=== PATIENT | male | born 1945 | race Caucasian/White ===

== ENCOUNTER → 2021-02-09 | Outpatient (CLI) | payer MEDICARE | END | disposition home or self-care (01) | LOC: CFH 14:42 | PROVIDERS: ATTEND Internal Medicine Cardiovascular Disease | DX: I08.0 Rheumatic disorders of both mitral and aortic valves (principal); I48.91 Unspecified atrial fibrillation | CPT/HCPCS: 93306; 93356 ==

== ENCOUNTER → 2021-04-10 | Outpatient (CLI) | payer MEDICARE ==
[~2021-04-10] MED LIST: OMNIPAQUE 350 MG/ML, 150 ML BOTTLE ONE
== END | disposition home or self-care (01) ==
LOC: CFH 09:44
PROVIDERS: ATTEND Internal Medicine Cardiovascular Disease
DX: I48.91 Unspecified atrial fibrillation (principal)
CPT/HCPCS: 71046; 75572; Q9967

== ENCOUNTER 2021-04-13 06:03 | Observation (INO) | payer MEDICARE ==
[~2021-04-13] VITALS: Ht 177.8 cm; Wt 84.2 kg
[2021-04-13] MEDS ORDERED: VITA1TAB19 PO (06:55)
[2021-04-13] MEDS ORDERED: ERGO1250 PO (06:55)
[2021-04-13] MEDS ORDERED: MULT1TAB58 PO (06:55)
[2021-04-13] MEDS ORDERED: DIGO250T3 PO (06:55)
[2021-04-13] MEDS ORDERED: IRON1TAB60 PO (06:55)
[2021-04-13] MEDS ORDERED: METF500T17 PO (06:55)
[2021-04-13] MEDS ORDERED: CLIN300C9 PO (06:55)
[2021-04-13] MEDS ORDERED: APIX5TAB PO (06:55)
[2021-04-13] MEDS ORDERED: SIMV20TA19 PO (06:55)
[2021-04-13] MEDS ORDERED: CARV12.52 PO (06:55)
[2021-04-13] MEDS ORDERED: OMEP-110 PO (06:55)
[2021-04-13] MEDS ORDERED: SODIUM CHLORIDE 0.9% 1,000 ML IV ONE (07:00)
[2021-04-13] MEDS ORDERED: SODIUM CHLORIDE 0.9% 1,000 ML IV SCH (07:00)
[2021-04-13 07:32] LABS: MEAN CORPUSCULAR HEMOGLOBIN 31.3 pg (27.5-34.5); MEAN CORPUSCULAR HGB CONC 33.7 g/dL (33.2-36.2); MEAN PLATELET VOLUME 8.5 fL (7.4-10.4); PLATELET COUNT 202 x10^3/uL (130-400); RED BLOOD COUNT 4.41 x10^6/uL (4.38-5.82)
[2021-04-13 07:44] LABS: ANION GAP 7 mmol/L (5-15); CHLORIDE 107 mmol/L (98-107); CREATININE 1.23 mg/dL (0.7-1.3)
[2021-04-13] MEDS ORDERED: FENTANYL PF 250 MCG/5ML ONE (07:46)
[2021-04-13] MEDS ORDERED: MIDAZOLAM 1 MG/ML, 2ML ONE (07:46)
[2021-04-13] MEDS ORDERED: ROCURONIUM 10MG/ML,5ML ONE (07:47)
[2021-04-13 07:53] LABS: INTERNATIONAL NORMALIZED RATIO 1.07 (0.93-1.1); PROTHROMBIN TIME 11.4 Seconds (9.6-11.5)
[2021-04-13 08:07] LABS: BASOS#(MANUAL) 0.08 x10^3/uL (0-0.1); BASOS% (MANUAL) 1 % (0-1); EOS#(MANUAL) 0.31 x10^3/uL (0.0-0.4); EOS% (MANUAL) 4 % (1-7); LYMPH#(MANUAL) 1.56 x10^3/uL (1-3.4); LYMPHS% (MANUAL) 20 % (22-44); MONOS#(MANUAL) 0.86 x10^3/uL (0.3-2.7); MONOS% (MANUAL) 11 % (2-9); SEG#(MANUAL) 4.99 x10^3/uL (1.8-6.8); SEGS% (MANUAL) 64 % (42-75)
[2021-04-13 08:08] LABS: <PLATELET ESTIMATE> ADEQUATE; <PLT MORPHOLOGY> NORMAL PLT MORPH; <RBC MORPHOLOGY> NORMAL
[2021-04-13] MEDS ORDERED: PROPOFOL 10 MG/ML, 20ML ONE (08:12)
[2021-04-13] MEDS ORDERED: CEFAZOLIN 1,000 MG ONE (08:12)
[2021-04-13] MEDS ORDERED: DEXAMETHASONE 4 MG/ML, 1ML ONE ×2 (08:34)
[2021-04-13] MEDS ORDERED: HEPARIN 1,000 UNITS/ML, 10ML ONE ×2 (09:00→10:29)
[2021-04-13] MEDS ORDERED: NEOSTIGMINE 1 MG/ML, 10ML ONE (10:29)
[2021-04-13] MEDS ORDERED: ONDANSETRON 2MG/ML, 2ML ONE ×2 (10:29)
[2021-04-13] MEDS ORDERED: GLYCOPYRROLATE 0.2MG/1ML, 5ML ONE (10:29)
[2021-04-13] MEDS ORDERED: APIXABAN 5 MG TABLET PO SCH (10:30)
[2021-04-13] MEDS ORDERED: ZOLPIDEM 5MG TABLET PO PRN (10:30)
[2021-04-13] MEDS ORDERED: CLINDAMYCIN 300 MG CAPSULE PO SCH (10:30)
[2021-04-13] MEDS ORDERED: ACETAMINOPHEN 325 MG TABLET PO PRN ×2 (10:30→11:00)
[2021-04-13] MEDS ORDERED: ONDANSETRON 2MG/ML, 2ML IVPush PRN ×2 (10:30→11:00)
[2021-04-13] MEDS ORDERED: MEPERIDINE/PF 25MG/0.5ML IVPush PRN (11:00)
[2021-04-13] MEDS ORDERED: MIDAZOLAM 1 MG/ML, 2ML IV PRN (11:00)
[2021-04-13] MEDS ORDERED: DIPHENHYDRAMINE 50 MG/ML, 1ML IVPush PRN ×2 (11:00)
[2021-04-13] MEDS ORDERED: LABETALOL 5MG/ML, 20ML IV PRN (11:00)
[2021-04-13] MEDS ORDERED: hydrALAzine 20 MG/ML, 1ML IV PRN (11:00)
[2021-04-13] MEDS ORDERED: DIAZEPAM 5 MG/ML, 2ML IVPush PRN (11:00)
[2021-04-13] MEDS ORDERED: PROMETHAZINE 25 MG/ML, 1ML IVPush PRN (11:00)
[2021-04-13] MEDS ORDERED: FENTANYL PF 100 MCG/2ML IV PRN (11:00)
[2021-04-13] MEDS ORDERED: ALBUTEROL SULFATE 2.5 MG/3 ML NPPB PRN (11:00)
[2021-04-13] MEDS ORDERED: EPHEDRINE 50 MG/ML, 1ML IVPush PRN (11:00)
[2021-04-13] MEDS ORDERED: OXYcodone 5 MG/5 ML ORAL.SOL UDC PO PRN (11:00)
[2021-04-13] MEDS ORDERED: PROMETHAZINE 12.5 MG SUPP PR PRN (11:00)
[2021-04-13] MEDS ORDERED: HYDROmorphone 1 MG/ML, 1ML INJ IVPush PRN (11:00)
[2021-04-13] MEDS ORDERED: APIXABAN 5 MG TABLET ONE (11:50)
[2021-04-13] MEDS ORDERED: APIXABAN 5 MG TABLET PO ONE (12:00)
[2021-04-13 14:00] VITALS: BP 138/79
[2021-04-13 19:55] VITALS: BP 122/75
[2021-04-13] MEDS: metFORMIN 500 MG TABLET PO SCH (20:34)
[2021-04-13] MEDS: APIXABAN 5 MG TABLET PO SCH (20:34)
[2021-04-13] MEDS: CARVEDILOL 12.5 MG TABLET PO SCH (20:34)
[2021-04-13] MEDS: COLCHICINE 0.6 MG CAPSULE PO SCH (20:34)
[2021-04-13] MEDS ORDERED: SIMVASTATIN 20 MG TABLET PO SCH (21:00)
[2021-04-14 03:03] VITALS: BP 121/73
[2021-04-14 07:12] VITALS: BP 131/76
[2021-04-14] MEDS ORDERED: OMEPRAZOLE 20 MG CAPSULE.DR PO SCH (07:30)
[2021-04-14] MEDS: metFORMIN 500 MG TABLET PO SCH (08:41)
[2021-04-14] MEDS: COLCHICINE 0.6 MG CAPSULE PO SCH (08:42)
[2021-04-14] MEDS: CARVEDILOL 12.5 MG TABLET PO SCH (08:42)
[2021-04-14] MEDS: APIXABAN 5 MG TABLET PO SCH (08:42)
[2021-04-14] MEDS ORDERED: DIGOXIN 0.25 MG TABLET PO SCH (09:00)
[2021-04-14] MEDS ORDERED: CHOLECALCIFEROL 1,000 UNIT TABLET PO SCH (09:00)
[2021-04-14] MEDS ORDERED: MULTIVITAMIN 1 TABLET PO SCH (09:00)
[2021-04-14] MEDS ORDERED: COLC0.6C3 PO (09:35)
== END 2021-04-14 11:30 | disposition home or self-care (01) ==
LOC: CACL 06:03 → ORIP 10:30 → 5SO 12:06 → DCLOUNGE 04-14 11:20
PROVIDERS: ADMIT Internal Medicine Cardiovascular Disease; ATTEND Internal Medicine Cardiovascular Disease
DX: I48.91 Unspecified atrial fibrillation (principal); Z20.822 Contact with and (suspected) exposure to COVID-19; I48.3 Typical atrial flutter; I48.4 Atypical atrial flutter; I10 Essential (primary) hypertension; E78.5 Hyperlipidemia, unspecified; E11.9 Type 2 diabetes mellitus without complications; G47.33 Obstructive sleep apnea (adult) (pediatric); K21.9 Gastro-esophageal reflux disease without esophagitis; I25.10 Atherosclerotic heart disease of native coronary artery without angina pectoris; Z79.899 Other long term (current) drug therapy; Z79.01 Long term (current) use of anticoagulants
CPT/HCPCS: 36415; 80048; 82962; 85025; 85347; 85610; 85730; 93005; 93308; 93312; 93321; 93325; 93613; 93656; 93657; 93662; C1730; C1732; C1759; C1766; C1893; C1894; G0378; J0690; J1100; J1644; J2250; J2405; J2704; J2710; J3010; U0003; U0005

== ENCOUNTER 2021-04-15 07:07 | Emergency (ER) | payer MEDICARE ==
[~2021-04-15] VITALS: Ht 177.8 cm; Wt 84.5 kg
[~2021-04-15 07:07] MED LIST changes: +APIX5TAB PO; +CARV12.52 PO; +CLIN300C9 PO; +COLC0.6C3 PO; +DIGO250T3 PO; +ERGO1250 PO; +IRON1TAB60 PO; +METF500T17 PO; +MULT1TAB58 PO; +OMEP-110 PO; -OMNIPAQUE 350 MG/ML, 150 ML BOTTLE ONE; +SIMV20TA19 PO; +VITA1TAB19 PO
[2021-04-15 07:10] VITALS: BP 143/61
--- NOTE | 2021-04-15 07:18 | NUR ---
PT AMBULATORY TO ROOM FROM TRIAGE, PT CHANGED INTO GOWN. MONITORS IN PLACE. AT BS. PT STATES HE HAD AN ABLATION ON SATURDAY, WITH BLEEDING ON R-GROIN WHERE INCISION SITE IS. PA AT BS
[2021-04-15] MEDS ORDERED: NEOSPORIN OINT. PKT 1 PACKET ONE (07:47)
--- NOTE | 2021-04-15 08:00 | NUR ---
Patient given discharge instructions and they have confirmed that they understand the instructions. Patient ambulatory with steady gait.
== END 2021-04-15 08:02 | disposition home or self-care (01) ==
LOC: ED 07:47
DX: Z48.01 Encounter for change or removal of surgical wound dressing (principal); I48.91 Unspecified atrial fibrillation
CPT/HCPCS: 99282